=== PATIENT | female | born 1950 ===

== ENCOUNTER 2022-03-13 06:25 | Day surgery (SDC) | payer OTHER ==
[~2022-03-13 06:25] MED LIST: NORVASC5 MG PO
[2022-03-13] MEDS ORDERED: MACROBID 100 M100 MG PO (11:03)
[2022-03-13] MEDS ORDERED: ULTRACET PO (11:04)
== END 2022-03-13 15:14 | disposition home or self-care (01) ==
LOC: CIR.AMB 06:25
PROVIDERS: ATTEND Obstetrics & Gynecology Gynecology
DX: N81.10 Cystocele, unspecified (principal); Z20.822 Contact with and (suspected) exposure to COVID-19; Z91.041 Radiographic dye allergy status; I10 Essential (primary) hypertension; Z87.891 Personal history of nicotine dependence; Z85.038 Personal history of other malignant neoplasm of large intestine; R73.03 Prediabetes